=== PATIENT | male | born 1935 | race Caucasian/White ===

== ENCOUNTER → 2017-09-21 | Outpatient (CLI) | payer MEDICARE | END | disposition home or self-care (01) | LOC: PCVCCLINIC 12:53 | DX: R07.2 Precordial pain (principal); I10 Essential (primary) hypertension; E78.5 Hyperlipidemia, unspecified; R09.89 Other specified symptoms and signs involving the circulatory and respiratory systems; Z79.899 Other long term (current) drug therapy; Z88.8 Allergy status to other drugs, medicaments and biological substances | CPT/HCPCS: 80061; 93005; G0463 ==

== ENCOUNTER → 2017-10-06 | Outpatient (CLI) | payer MEDICARE ==
[~2017-10-06] MED LIST: REGADENOSON 0.4 MG/5 ML DISP.SYRIN. IV ONE
--- NOTE | 2017-10-06 12:34 | PCVCIMAG ---
APPROVED REPORT Study performed: 10/06/2017 11:21:43 EXAM: Comprehensive 2D, Doppler, and color-flow Echocardiogram Patient Location: Echo lab Status: routine BSA: 1.72 HR: 83 bpmBP: 150/74 mmHg Rhythm: NSR Other Information Study Quality: Adequate Risk Factors: Cardiac Risk Factors: HTN Indications Diabetes Chest Pain 2D Dimensions LVEF(%): 57.04 (>50%) IVSd: 13.69 (7-11mm)LVOT Diam: 20.58 (18-24mm) LVDd: 40.63 mm PWd: 11.59 (7-11mm)Ascending Ao: 32.98 (22-36mm) LVDs: 28.63 (25-40mm) Left Atrium: 33.17 (27-40mm) Aortic Root: 27.19 mm LV Single Plane 4CH: 62.52 % LV Single Plane 2CH: 66.44 %Johnson's LVEF: 64.48 % Biplane EF: 65.4 % Volumes Left Atrial Volume (Systole) Single Plane 4CH: 33.59 mLSingle Plane 2CH: 39.50 mL LA ESV Index: 23.00 mL/m2 Aortic Valve AoV Peak Johnny.: 2.40 m/s AO Peak Gr.: 22.97 mmHgLVOT Max P.53 mmHg AO Mean Gr.: 10.88 mmHgLVOT Mean P.79 mmHg AO V2 Mean: 1.48 m/sLVOT Max V: 1.15 m/s AO V2 VTI: 52.45 cm GILBERT (VTI): 1.52 jm6IPRM V1 VTI: 23.98 cm GILBERT Vmax: 1.60 cm2 Mitral Valve E/A Ratio: 0.7 MV Decel. Time: 178.90 ms MV E Max Johnny.: 0.58 m/s MV A Johnny.: 0.89 m/s MV PHT: 51.88 ms IVRT: 107.27 ms Pulmonary Valve PV Peak Johnny.: 1.15 m/sPV Peak Gr.: 5.33 mmHg Pulmonary Vein P Vein S: 0.26 m/sP Vein A: 0.38 m/s P Vein D: 0.31 m/sP Vein A Dur.: 134.9 msec P Vein S/D Ratio: 0.84 Tricuspid Valve TR Peak Johnny.: 2.30 m/s TR Peak Gr.: 21.25 mmHg TV Vmax: 0.48 m/s Left Ventricle The left ventricle is normal size. There is normal LV segmental wall motion. Mild concentric left ventricular hypertrophy. Left ventricular systolic function is normal. The left ventricular ejection fraction is within the normal range. LVEF is 60-65%. Grade I - abnormal relaxation pattern. Right Ventricle The right ventricle is normal size. The right ventricular systolic function is normal. Atria The left atrium size is normal. The right atrium size is normal. Aortic Valve The aortic valve is moderately to severely sclerotic. Trace aortic regurgitation. There is mild valvular aortic stenosis. Calculated aortic valve area is 1.6 cm2 with maximum pressure gradient of 23 mmHg and mean pressure gradient of 11 mmHg. Mitral Valve Mild mitral annular calcification There is no mitral valve regurgitation noted. No evidence of mitral valve stenosis. Tricuspid Valve The tricuspid valve is normal in structure. Trace tricuspid regurgitation with PAP of 28 mmHg. Pulmonic Valve The pulmonary valve is normal in structure. There is no pulmonic valvular regurgitation. Great Vessels The aortic root is normal in size. IVC is normal in size and collapses with >50% inspiration Pericardium There is no pericardial effusion. There is no pleural effusion. <Conclusion> Left ventricular systolic function is normal. There is normal LV segmental wall motion. Mild concentric LVH LVEF is 60-65%. Mild diastolic dysfunction The aortic valve is moderately to severely sclerotic, mildly stenotic. No insufficiency Calculated aortic valve area is 1.6 cm2 with maximum pressure gradient of 23 mmHg and mean pressure gradient of 11 mmHg. Mild mitral annular calcification. No mitral valve regurgitation noted. Trace tricuspid regurgitation with pulmonary artery pressure of 28 mmHg. There is no pericardial effusion.
--- NOTE | 2017-10-06 12:52 | PCVCIMAG ---
APPROVED REPORT Indications Bruit Risk Factors Hypertension: Hyperlipidemia Diabetes Doppler Spectral Velocity Analysis PSV / EDVPSV / EDV ECA (R) 118 / 12 cm/sECA (L) 158 / 14 cm/s dICA (R) 75 / 19 cm/sdICA (L) 55 / 15 cm/s Joaquin (R) 74 / 20 cm/smICA (L) 93 / 26 cm/s pICA (R) 63 / 16 cm/spICA (L) 107 / 20 cm/s Bulb (R) 77 / 13 cm/sBulb (L) 122 / 20 cm/s dCCA (R) 84 / 14 cm/sdCCA (L) 126 / 20 cm/s mCCA (R) 99 / 12 cm/smCCA (L) 124 / 26 cm/s Vert (R) 55 / 13 cm/sVert (L) 75 / 13 cm/s ICA/CCA 0.89ICA/CCA 0.85 Basic Measurements Blood Pressure: Pulses: Right Left RightLeft Brachial(Sitting) 144/38hqAk186/74mmHgTemporal Real Time B-Mode Imaging Vert. (R)AntegradeVert. (L)Antegrade Findings The right carotid bulb has moderate calcified plaque. The right proximal internal carotid artery shows <40% stenosis. The right common carotid artery shows no significant stenosis. The right external carotid artery shows no significant stenosis. The left carotid bulb has mild plaque. The left proximal internal carotid artery shows <40% stenosis. The left common carotid artery shows no significant stenosis. The left external carotid artery shows no significant stenosis. Conclusion 1. Right internal carotid artery stenosis (<40%) 2. Left internal carotid artery stenosis (<40%) 3. Antegrade vertebral flow
--- NOTE | 2017-10-07 09:28 | PCVCIMAG ---
APPROVED REPORT Imaging Protocol: Rest Tc-99m/Stress Tc-99m 1 day Study performed: 10/06/2017 11:48:04 Indication: Precordial pain Patient Location: Out-Patient Stress Nurse: Amisha Herring RN NM Tech:Jose Guadalupe King NMTCB Ht: 5 ft 4 in Wt: 155 lbs BSA: 1.76 m2 HR: 65 bpm BP: 181/79 mmHg BMI: 26.6 Rhythm: SR Medical History Medical History: Age, Hyperlipidemia, HTN, Dm Medications: Atorvastatin, Doxazosin, Metformin, Quinapril Allergies: Codeine Pretest Chest Pain Characteristics: No chest pain Exercise History: Sedentary Physical Disabilities: Back Resting Data Rest SPECT myocardial perfusion imaging was performed in supine position 45 minutes following the intravenous injection of 12 mCi of Tc-99m Sestamibi. Time of rest injection: 1145 Date: 10/06/2017 Administration Route: IV Administration Site: Right AC Pharmacologic Stress Pharmacologic stress test was performed by injecting Regadenoson 0.4 mg IV push over 10-15 seconds immediately followed by the intravenous injection of 36 mCi of Tc-99m Sestamibi. Time of stress injection: 1255 Date: 10/06/2017 Administration Route: IV Administration Site: Right AC Gated Stress SPECT was performed 45 minutes after stress injection. The images were gated to evaluate regional wall motion and calculate left ventricular ejection fraction. Stress Test Details Stress Test: Pharmacologic stress testing performed using 0.4 mg of regadenoson per 5 mL given IV over 10 seconds. Reason for pharmacologic stress test: physical limitation. HRMax Heart Rate (APMHR): 140 bpm Resting HR: 65 bpmTarget HR (85% APMHR): 119 bpm Max HR Achieved: 109 bpm % of APMHR: 77 Recovery HR: 95 bpm BP Resting BP: 181/79 mmHg Recovery BP: 149/70 mmHg ECG Resting ECG: Sinus Rhythm Stress ECG: Sinus Tachycardia ST Change: None Maximum ST Deviation: 0 mm Arrhythmia: None Recovery ECG: Sinus Rhythm Clinical Reason for Termination: Completed protocol Stress Symptoms: Abdominal Discomfort, Dyspnea Exercise duration: min 55 sec Symptoms resolved with caffeine. Stress ECG Conclusion Clinical: Non-ischemic ECG: Non-ischemic Study Quality Study: Good Study Data Post stress, the left ventricular ejection was 71%.. SSS: 4 SRS: 0 SDS: 4 TID = 0.97. Perfusion Medium sized area of moderate reversible ischemia involving the mid/apical anterior left ventricle consistent with a left anterior descending distribution. Wall Motion Normal left ventricular size and function with no regional wall motion abnormalities. Nuclear Conclusion Medium sized area of moderate reversible ischemia involving the mid/apical anterior left ventricle consistent with a left anterior descending distribution. Normal left ventricular size and function with no regional wall motion abnormalities. Post stress, the left ventricular ejection was 71%. No prior study available for comparison. Interpreted by: Rod Contreras MD Electronically Approved: 10/06/2017 18:16:00 <Conclusion> Clinical: Non-ischemic ECG: Non-ischemic
== END | disposition home or self-care (01) ==
LOC: PCVCIMAG 12:15
PROVIDERS: ATTEND Internal Medicine
DX: I65.23 Occlusion and stenosis of bilateral carotid arteries (principal); I10 Essential (primary) hypertension; E11.9 Type 2 diabetes mellitus without complications; R09.89 Other specified symptoms and signs involving the circulatory and respiratory systems; E78.5 Hyperlipidemia, unspecified
CPT/HCPCS: 78452; 93017; 93306; 93880; A9500; J2785

== ENCOUNTER → 2018-01-19 | Outpatient (CLI) | payer MEDICARE | END | disposition home or self-care (01) | LOC: PCVCCLINIC 13:33 | PROVIDERS: ATTEND Internal Medicine | DX: I25.118 Atherosclerotic heart disease of native coronary artery with other forms of angina pectoris (principal); I10 Essential (primary) hypertension; E78.5 Hyperlipidemia, unspecified; I65.23 Occlusion and stenosis of bilateral carotid arteries; E11.9 Type 2 diabetes mellitus without complications; Z79.84 Long term (current) use of oral hypoglycemic drugs | CPT/HCPCS: 36415; 80061; 93005; G0463 ==